=== PATIENT | female | born 1985 | race Caucasian/White ===

== ENCOUNTER 2020-04-13 23:50 | Emergency (ER) | payer MEDICAID ==
[~2020-04-13 23:50] MED LIST: Ondansetron 4 MG Tab.DIS ONE
[2020-04-14] MEDS ORDERED: Ondansetron 4 MG/2 ML SDV IVPUSH ONE (00:17)
[2020-04-14] MEDS ORDERED: Dicyclomine 20 MG/2 ML SDV IM ONE (00:17)
[2020-04-14] MEDS ORDERED: Sodium Chloride 0.9% 1,000 ML IV ONE (00:18)
[2020-04-14] MEDS ORDERED: Ondansetron 4 MG/2 ML SDV ONE (00:45)
[2020-04-14] MEDS ORDERED: Sodium Chloride 0.9% 50 ML SDV FLUSH ONE (00:53)
[2020-04-14] MEDS ORDERED: Iodixanol 652 MG/ML 100 ML Bottle IV SCH (01:00)
[2020-04-14] MEDS ORDERED: Potassium Chloride 40 MEQ/20 ML SDV IV STA (01:21)
[2020-04-14] MEDS ORDERED: NS + KCl 20mEq/L 1,000 ML IV ONE (01:45)
[2020-04-14] MEDS ORDERED: metroNIDAZOLE 500 MG Tab PO ONE (01:54)
[2020-04-14] MEDS ORDERED: Potassium Chloride 20 MEQ Tab.ER PO ONE (01:54)
--- NOTE | 2020-04-14 02:08 | EDM.PDOC ---
ED HPI GENERAL MEDICAL PROBLEM - General Chief Complaint: Abdominal Pain Stated Complaint: DIARRHEA Time Seen by Provider: 04/13/20 23:50 Source of Information: Reports: Patient History Limitations: Reports: No Limitations - History of Present Illness INITIAL COMMENTS - FREE TEXT/NARRATIVE: Patient is a 34 y/o female, who presents with watery diarrhea and abdominal cramping off and on for several months. Associated nausea. Patient denies and has had a hysterectomy. Patient has an appointment tomorrow with Dr. Bravo. She denies any recent antibiotics, no camping, no vomiting, no chest pain, no SOB, no dizziness, and no melena/bloody stools. - Related Data Allergies Allergy/AdvReac Type Severity Reaction Status Date / Time prochlorperazine Allergy Unknown Cannot Verified 04/14/20 01:02 [From Compazine] Remember sumatriptan [From Imitrex] Allergy Unknown Cannot Verified 04/14/20 01:02 Remember Social & Family History - Tobacco Use Smoking Status *Q: Never Smoker ED ROS GENERAL - Review of Systems Review Of Systems: Comprehensive ROS is negative, except as noted in HPI. ED EXAM, GI/ABD - Physical Exam Exam: See Below Exam Limited By: No Limitations General Appearance: Alert, No Apparent Distress Respiratory/Chest: No Respiratory Distress, Lungs Clear, Normal Breath Sounds, No Accessory Muscle Use, Chest Non-Tender Cardiovascular: Normal Peripheral Pulses, Regular Rate, Rhythm, No Edema, No Murmur GI/Abdominal Exam: Normal Bowel Sounds, Soft, No Distention (Diffuse tenderness to abdomen) Course - Orders/Labs/Meds Orders: Active Orders 24 hr Category Date Time Status Abdomen Pelvis w Cont [CT] Stat Exams 04/14/20 01:19 Taken Iodixanol [Visipaque 320] Med 04/14/20 01:00 Active 100 ml IV . DIRECTED NS + KCl 20mEq/L [Normal Saline with 20 mEq KCl] 1,000 Med 04/14/20 01:45 Active ml IV ONETIME Medication Orders Potassium Chloride/Sodium Chloride (Normal Saline With 20 Meq Kcl) 1,000 mls @ 500 mls/hr IV ONETIME ONE Stop: 04/14/20 03:44 Iodixanol (Visipaque 320) 100 ml IV . DIRECTED [facility] Labs: Laboratory Tests 04/14/20 04/14/20 04/14/20 Range/Units 00:40 00:40 00:40 WBC 5.2 (4.0-11.0) K/uL RBC 4.22 (3.80-5.80) M/uL Hgb 12.9 (11.5-16.5) g/dL Hct 37.1 (37.0-47.0) % MCV 88 (76-96) fL MCH 30.6 (27.0-32.0) pg MCHC 34.8 (31.0-35.0) g/dL RDW 12.1 (11.0-16.0) % Plt Count 280 (150-500) K/uL MPV 10.6 H (6.0-10.0) fL Neut % (Auto) 30.5 L (45.0-70.0) % Lymph % (Auto) 45.6 H (20.0-40.0) % [place] % (Auto) 16.2 H (3.0-10.0) % Eos % (Auto) 7.1 H (1.0-5.0) % Baso % (Auto) 0.6 H (0.0-0.5) % Neut # (Auto) 1.59 L (2.00-7.50) K/uL Lymph # (Auto) 2.37 (1.50-4.00) K/uL Flagler # (Auto) 0.84 H (0.20-0.80) K/uL Eos # (Auto) 0.37 (0.04-0.40) K/uL Baso # (Auto) 0.03 (0.02-0.10) K/uL Sodium (136-145) mmol/L Potassium (3.5-5.1) mmol/L Chloride (98-107) mmol/L Carbon Dioxide (21.0-32.0) mmol/L Anion Gap (5.0-15.0) mmol/L BUN (8-26) mg/dL Creatinine (0.55-1.02) mg/dL Est Cr Clr Drug Dosing Estimated GFR (MDRD) (>60) MLS/MIN BUN/Creatinine Ratio (6-25) Glucose (74-100) mg/dL Lactic Acid (0.4-2.0) mmol/L Calcium (8.5-10.1) mg/dL Total Bilirubin (0.0-1.0) mg/dL AST (15-37) U/L ALT (12-78) U/L Alkaline Phosphatase (46-116) U/L Total Protein (6.4-8.2) g/dL Albumin (3.4-5.0) g/dL Globulin (2.2-4.2) g/dL Albumin/Globulin Ratio (0.8-2.0) Urine Color Yellow Urine Appearance Clear (CLEAR) Urine pH 6.0 (5.0-8.0) Ur Specific [place] 1.010 (1.003-1.030) Urine Protein Negative (NEGATIVE) mg/dL Urine Glucose (UA) Negative (NEGATIVE) mg/dL Urine Ketones Negative (NEGATIVE) mg/dL Urine Occult Blood Negative (NEGATIVE) Urine Nitrite Negative (NEGATIVE) Urine Bilirubin Negative (NEGATIVE) Urine Urobilinogen 0.2 (0.2-1.0) E.U./dL Ur Leukocyte Esterase Negative (NEGATIVE) Urine HCG, Qual Negative (NEGATIVE) 04/14/20 04/14/20 Range/Units 00:40 00:40 WBC (4.0-11.0) K/uL RBC (3.80-5.80) M/uL Hgb (11.5-16.5) g/dL Hct (37.0-47.0) % MCV (76-96) fL MCH (27.0-32.0) pg MCHC (31.0-35.0) g/dL RDW (11.0-16.0) % Plt Count (150-500) K/uL MPV (6.0-10.0) fL Neut % (Auto) (45.0-70.0) % Lymph % (Auto) (20.0-40.0) % Flag[place] % (Auto) (3.0-10.0) % Eos % (Auto) (1.0-5.0) % Baso % (Auto) (0.0-0.5) % Neut # (Auto) (2.00-7.50) K/uL Lymph # (Auto) (1.50-4.00) K/uL Flagler # (Auto) (0.20-0.80) K/uL Eos # (Auto) (0.04-0.40) K/uL Baso # (Auto) (0.02-0.10) K/uL Sodium 141 (136-145) mmol/L Potassium 2.9 L* (3.5-5.1) mmol/L Chloride 104 (98-107) mmol/L Carbon Dioxide 25.9 (21.0-32.0) mmol/L Anion Gap 14.0 (5.0-15.0) mmol/L BUN 7 L (8-26) mg/dL Creatinine 0.76 (0.55-1.02) mg/dL Est Cr Clr Drug Dosing TNP Estimated GFR (MDRD) > 60 (>60) MLS/MIN BUN/Creatinine Ratio 9.2 (6-25) Glucose 90 (74-100) mg/dL Lactic Acid 0.7 (0.4-2.0) mmol/L Calcium 8.6 (8.5-10.1) mg/dL Total Bilirubin 0.2 (0.0-1.0) mg/dL AST 16 (15-37) U/L ALT 20 (12-78) U/L Alkaline Phosphatase 73 (46-116) U/L Total Protein 7.0 (6.4-8.2) g/dL Albumin 3.8 (3.4-5.0) g/dL Globulin 3.2 (2.2-4.2) g/dL Albumin/Globulin Ratio 1.2 (0.8-2.0) Urine Color Urine Appearance (CLEAR) Urine pH (5.0-8.0) Ur Specific [place] (1.003-1.030) Urine Protein (NEGATIVE) mg/dL Urine Glucose (UA) (NEGATIVE) mg/dL Urine Ketones (NEGATIVE) mg/dL Urine Occult Blood (NEGATIVE) Urine Nitrite (NEGATIVE) Urine Bilirubin (NEGATIVE) Urine Urobilinogen (0.2-1.0) E.U./dL Ur Leukocyte Esterase (NEGATIVE) Urine HCG, Qual (NEGATIVE) Meds: Medications Generic Name Dose Route Start Last Admin Trade Name Freq PRN Reason Stop Dose Admin Potassium Chloride/Sodium Chloride 1,000 mls @ 500 mls/hr 04/14/20 01:45 Normal Saline With 20 Meq Kcl IV 04/14/20 03:44 ONETIME ONE Iodixanol 100 ml 04/14/20 01:00 Visipaque 320 IV . DIRECTED [facility]AVI Discontinued Medications Generic Name Dose Route Start Last Admin Trade Name Gurmeet PRN Reason Stop Dose Admin Dicyclomine HCl 20 mg 04/14/20 00:17 Bentyl IM 04/14/20 00:18 ONETIME ONE Sodium Chloride 1,000 mls @ 1,000 mls/sec 04/14/20 00:18 04/14/20 01:10 Normal Saline IV 04/14/20 00:19 Infused .BOLUS ONE Infusion Metronidazole 500 mg 04/14/20 01:54 Flagyl PO 04/14/20 01:55 ONETIME ONE Ondansetron HCl 4 mg 04/14/20 00:17 04/14/20 00:46 Zofran IVPUSH 04/14/20 00:18 4 mg ONETIME ONE Administration Ondansetron HCl Confirm 04/14/20 00:45 04/14/20 00:45 Zofran Administered 04/14/20 00:46 Not Given Dose 4 mg .ROUTE .STK-MED ONE Potassium Chloride 40 meq 04/14/20 01:54 Klor-Con M20 PO 04/14/20 01:55 ONETIME ONE Sodium Chloride 50 ml 04/14/20 00:53 Normal Saline FLUSH 04/14/20 00:54 ONETIME ONE Departure - Departure Time of Disposition: 02:10 Disposition: Home, Self-Care 01 Condition: Good Clinical Impression: Colitis - Discharge Information *PRESCRIPTION DRUG MONITORING PROGRAM REVIEWED*: Not Applicable *COPY OF PRESCRIPTION DRUG MONITORING REPORT IN PATIENT MILO: Not Applicable Referrals: PCP,None [Primary Care Provider] - - My Orders Last 24 Hours: My Active Orders 04/14/20 01:00 Iodixanol [Visipaque 320] 100 ml IV . DIRECTED 04/14/20 01:19 Abdomen Pelvis w Cont [CT] Stat 04/14/20 01:45 NS + KCl 20mEq/L [Normal Saline with 20 mEq KCl] 1,000 ml IV ONETIME - Assessment/Plan Last 24 Hours: My Active Orders 04/14/20 01:00 Iodixanol [Visipaque 320] 100 ml IV . DIRECTED 04/14/20 01:19 Abdomen Pelvis w Cont [CT] Stat 04/14/20 01:45 NS + KCl 20mEq/L [Normal Saline with 20 mEq KCl] 1,000 ml IV ONETIME Plan: Patient with hypokalemia and potassium was replaced. She was given zofran, fluid and bentyl with improvement of her symptoms. Imaging with mild colitis. Will discharge patient home with flagyl and zofran. Follow up with Dr. Bravo tomorrow as scheduled at 0900. Return to the ED for fever >102, unable to tolerate fluids, difficulty breathing/swallowing, and/or persistent/worsening symptoms.
[2020-04-14] MEDS ORDERED: metroNIDAZOLE 500 MG Tab ONE (02:24)
--- NOTE | 2020-04-14 07:36 | CT ---
DATE OF SERVICE: 04/14/20 CLINICAL DATA: r/o colitis ENHANCED ABDOMEN AND PELVIC CT: Multislice acquisition through the abdomen and pelvis with IV, but without oral contrast was performed. No priors. The lung bases are clear. The heart size is normal. There is mild diffuse fatty infiltration of the liver. No focal hepatic lesions. The gallbladder is contracted. No calcified gallstones. No biliary duct dilatation. The spleen appears normal. The pancreas appears normal. The right and left adrenals appear normal. The right and left kidneys appear normal and enhance symmetrically. No hydronephrosis or hydroureter. The bladder is partially fluid-filled. It appears normal. No evidence of appendicitis. There is a moderate amount of stool noted within the ascending and transverse colon. There is mural thickening within the descending and sigmoid colon. There are scattered air-fluid levels within the colon. Colitis should be considered. There is a small hiatal hernia. There is gastric wall thickening in the fundus of the stomach. This is probably related to nondistension. Gastritis should be considered. The patient is status post hysterectomy. No free air. No free fluid. No adenopathy. No aortic aneurysm or dissection. [id number] [facility]
== END 2020-04-14 02:15 | disposition home or self-care (01) ==
LOC: LB.ED 23:50
DX: K52.9 Noninfective gastroenteritis and colitis, unspecified (principal); E87.6 Hypokalemia; Z88.8 Allergy status to other drugs, medicaments and biological substances
CPT/HCPCS: 36415; 74177; 80053; 81003; 81025; 83605; 85025; 96361; 96365; 96372; 96375; 99284-25; A9270-GY; J0500; J2405; J3480; J7030

== ENCOUNTER 2020-05-30 16:19 | Emergency (ER) | payer MEDICAID ==
[~2020-05-30 16:19] MED LIST changes: -Ondansetron 4 MG Tab.DIS ONE; +traMADol 50 MG Tab ONE
[2020-05-30] MEDS: Ketorolac 60 MG/2 ML SDV IM ONE ×2 (17:34→18:17)
[2020-05-30] MEDS ORDERED: Ketorolac 60 MG/2 ML SDV IM ONE (18:15)
--- NOTE | 2020-05-30 19:13 | ER ---
REASON FOR EMERGENCY ROOM VISIT: Left ankle injury. HISTORY: This previously healthy 34-year-old woman jumped off the tailgate of a pickup and sustained a forced inversion injury of her left ankle. She immediately experienced swelling and discomfort and some bluish discoloration over the lateral aspect of her ankle area. She thought she felt a popping sensation when she landed on the side of her foot, which resulted in a forced inversion type of injury. She was unable to bear weight on this because of the pain and swelling. She denies any numbness or tingling in her toes. PAST MEDICAL HISTORY: Colitis. MEDICATIONS: Include the following, fexofenadine, benzonatate, fluticasone, montelukast sodium, gabapentin, and sertraline; doses as noted in her electronic medical record. ALLERGIES: PROCHLORPERAZINE AND SUMATRIPTAN. REVIEW OF SYSTEMS: Pertinent positives and negatives as listed in the HPI. PHYSICAL EXAMINATION: MUSCULOSKELETAL: Examination of the left leg reveals that she has swelling inferior to her lateral malleolus on the left side with some purplish discoloration consistent with a soft- tissue hematoma. She has tenderness to direct palpation here and some moderate discomfort to passive range of motion. There is no evidence of ankle-joint instability and no bony crepitus. There is no tenderness over the fibula or the fibular head. Distally, she has normal sensation as she is able to move her toes. IMAGING: X-rays show soft tissue swelling, but no evidence of fracture or dislocation. IMPRESSION: Left ankle sprain. PLAN: I instructed her to apply ice quite aggressively to this area to minimize swelling and for comfort measures. She should keep it iced fairly aggressively for the next 24 hours or so. We will keep her on nonweightbearing and we fit her up for a walking boot and crutches. She should stay off it for the next couple of days and then using the walking boot gradually begin to bear weight as tolerated after a few days' time. If she is not experiencing any progress or if any concerns develop, next week she should be seen in followup. She understands. All questions were answered. JINNY/SYED /[id number]
--- NOTE | 2020-05-31 08:56 | CR ---
Date of Service: 05/30/20 Clinical Data: possible fracture LEFT FOOT: No acute fracture or dislocation. No lytic or blastic bone lesions. There is a small posterior calcaneal spur. [id number] [facility]
== END 2020-05-30 18:00 | disposition home or self-care (01) ==
LOC: LB.ED 16:19
DX: S93.402A Sprain of unspecified ligament of left ankle, initial encounter (principal); Z88.8 Allergy status to other drugs, medicaments and biological substances; X58.XXXA Exposure to other specified factors, initial encounter
CPT/HCPCS: 73630; 96372; 99283; A9270; J1885; 99282

== ENCOUNTER 2021-09-27 10:36 | Emergency (ER) | payer MEDICAID ==
[2021-09-27] MEDS ORDERED: Ondansetron 4 MG Tab.DIS ONE (10:57)
[2021-09-27] MEDS ORDERED: Ondansetron 4 MG Tab.DIS PO ONE (11:14)
[2021-09-27] MEDS ORDERED: Ketorolac 30 MG/ML SDV ONE (12:59)
[2021-09-27] MEDS ORDERED: Ondansetron 4 MG/2 ML SDV ONE (12:59)
[2021-09-27] MEDS: Ketorolac 30 MG/ML SDV IVPUSH ONE ×2 (13:07→13:47)
[2021-09-27] MEDS: Ondansetron 4 MG/2 ML SDV IVPUSH ONE ×2 (13:09→13:47)
[2021-09-27] MEDS: Sodium Chloride 0.9% 1,000 ML IV ONE ×2 (13:10→13:46)
[2021-09-27] MEDS ORDERED: Potassium Chloride 20 MEQ Tab.ER ONE (13:24)
[2021-09-27] MEDS: Potassium Chloride 20 MEQ Tab.ER PO ONE ×2 (13:32→13:46)
--- NOTE | 2021-09-27 14:10 | EDM.PDOC ---
ED HPI GENERAL MEDICAL PROBLEM - General Chief Complaint: Gastrointestinal Problem Stated Complaint: NAUSEA Time Seen by Provider: 09/27/21 11:00 - History of Present Illness INITIAL COMMENTS - FREE TEXT/NARRATIVE: Pt is here with C/O not feeling well, with nausea, vomiting, and some diarrhea. This started 3-4 days ago. She feels weak. No coughing, SOB, or wheezing. Head Pain Score (Numeric/FACES): 5 - Related Data Allergies Allergy/AdvReac Type Severity Reaction Status Date / Time prochlorperazine Allergy Unknown Cannot Verified 09/27/21 10:48 [From Compazine] Remember sumatriptan [From Imitrex] Allergy Unknown Cannot Verified 09/27/21 10:48 Remember Home Meds: Home Meds Benzonatate 100 mg PO DAILY 05/30/20 [History] Fluticasone Propionate [Flonase] 50 mcg NASBOTH DAILY PRN 05/30/20 [History] Sertraline HCl 100 mg PO DAILY 05/30/20 [History] Meloxicam [Mobic] 15 mg PO DAILY 09/27/21 [History] buPROPion [Wellbutrin] 300 mg PO DAILY 09/27/21 [History] Past Medical History HEENT History: Reports: Sinusitis, Other (See Below) Other HEENT History: contact lenses Respiratory History: Reports: Other (See Below) Other Respiratory History: Reactive Airway disease CLAIMS INVESTIGATOR History: Reports: Ectopic , , Other (See Below) Neurological History: Reports: Migraines Psychiatric History: Reports: Anxiety - Infectious Disease History Infectious Disease History: Reports: Chicken Pox - Past Surgical History GI Surgical History: Reports: Cholecystectomy Female Surgical History: Reports: Hysterectomy, Oophorectomy Musculoskeletal Surgical History: Reports: Other (See Below) Other Musculoskeletal Surgeries/Procedures:: 3 knee surgeries in right and 2 in left, has had meniscus tears, Social & Family History - Family History Family Medical History: No Pertinent Family History - Tobacco Use Tobacco Use Status *Q: Current Every Day Tobacco User Years of Tobacco use: 20 Packs/Tins Daily: 1 - Caffeine Use Caffeine Use: Reports: Energy Drinks, Soda, Tea - Recreational Drug Use Recreational Drug Use: Yes Drug Use in Last 12 Months: Yes Recreational Drug Type: Reports: Marijuana/Hashish ED ROS GENERAL - Review of Systems Review Of Systems: Comprehensive ROS is negative, except as noted in HPI. Constitutional: Reports: Weakness GI/Abdominal: Reports: Diarrhea, Nausea, Vomiting ED EXAM, GI/ABD - Physical Exam Exam: See Below Course - Vital Signs Last Recorded V/S: Last Vital Signs Temp 96.7 F L 09/27/21 10:55 Pulse 98 09/27/21 10:55 Resp 16 09/27/21 10:55 BP 136/99 H 09/27/21 10:55 Pulse Ox 96 09/27/21 10:55 - Orders/Labs/Meds Orders: Active Orders 24 hr Category Date Time Status BASIC METABOLIC PANEL,BMP [CHEM] Stat Lab 09/27/21 12:18 Ordered UA W/MICROSCOPIC [URIN] Stat Lab 09/27/21 12:25 Ordered Labs: Laboratory Tests 09/27/21 09/27/21 09/27/21 Range/Units 11:50 12:18 12:25 WBC 8.1 D (4.0-11.0) K/uL RBC 5.12 (3.80-5.80) M/uL Hgb 15.2 (11.5-16.5) g/dL Hct 44.1 (37.0-47.0) % MCV 86 (76-96) fL MCH 29.7 (27.0-32.0) pg MCHC 34.5 (31.0-35.0) g/dL RDW 12.4 (11.0-16.0) % Plt Count 276 (150-500) K/uL MPV 10.3 H (6.0-10.0) fL Neut % (Auto) 66.2 (45.0-70.0) % Lymph % (Auto) 23.9 (20.0-40.0) % [place] % (Auto) 9.3 (3.0-10.0) % Eos % (Auto) 0.5 L (1.0-5.0) % Baso % (Auto) 0.1 (0.0-0.5) % Neut # (Auto) 5.35 (2.00-7.50) K/uL Lymph # (Auto) 1.93 (1.50-4.00) K/uL [place] # (Auto) 0.75 (0.20-0.80) K/uL Eos # (Auto) 0.04 (0.04-0.40) K/uL Baso # (Auto) 0.01 L (0.02-0.10) K/uL Sodium 144 (136-145) mmol/L Potassium 2.9 L* (3.5-5.1) mmol/L Chloride 103 (98-107) mmol/L Carbon Dioxide 27.3 (21.0-32.0) mmol/L Anion Gap 16.6 H (5.0-15.0) mmol/L BUN 15 D (8-26) mg/dL Creatinine 0.80 (0.55-1.02) mg/dL Est Cr Clr Drug Dosing 79.65 mL/min Estimated GFR (MDRD) > 60 (>60) MLS/MIN BUN/Creatinine Ratio 18.8 (6-25) Glucose 88 (74-100) mg/dL Calcium 9.0 (8.5-10.1) mg/dL Total Bilirubin 0.8 D (0.0-1.0) mg/dL AST 17 (15-37) U/L ALT 31 (12-78) U/L Alkaline Phosphatase 79 (46-116) U/L Total Protein 7.7 (6.4-8.2) g/dL Albumin 4.3 (3.4-5.0) g/dL Globulin 3.4 (2.2-4.2) g/dL Albumin/Globulin Ratio 1.3 (0.8-2.0) Lipase 110 (73-393) U/L SARS-CoV-2 RNA (ELVER) Negative (NEGATIVE) Meds: Medications Discontinued Medications Generic Name Dose Route Start Last Admin Trade Name Gurmeet PRN Reason Stop Dose Admin Sodium Chloride 1,000 mls @ 999 mls/hr 09/27/21 12:26 09/27/21 13:46 Normal Saline IV 09/27/21 13:26 Not Given .BOLUS ONE Ketorolac Tromethamine 30 mg 09/27/21 12:26 09/27/21 13:47 Ketorolac 30 Mg/Ml Sdv IVPUSH 09/27/21 12:27 Not Given ONETIME ONE Ketorolac Tromethamine Confirm 09/27/21 12:59 09/27/21 13:07 Ketorolac 30 Mg/Ml Sdv Administered 09/27/21 13:00 Not Given Dose 30 mg .ROUTE .STK-MED ONE Ondansetron HCl Confirm 09/27/21 10:57 09/27/21 11:15 Ondansetron 4 Mg Tab.Dis Administered 09/27/21 10:58 Not Given Dose 4 mg .ROUTE .STK-MED ONE Ondansetron HCl 4 mg 09/27/21 11:14 09/27/21 11:15 Ondansetron 4 Mg Tab.Dis PO 09/27/21 11:15 4 mg ONETIME ONE Administration Ondansetron HCl 4 mg 09/27/21 12:26 09/27/21 13:47 Ondansetron 4 Mg/2 Ml Sdv IVPUSH 09/27/21 12:27 Not Given ONETIME ONE Ondansetron HCl Confirm 09/27/21 12:59 09/27/21 13:07 Ondansetron 4 Mg/2 Ml Sdv Administered 09/27/21 13:00 Not Given Dose 4 mg .ROUTE .STK-MED ONE Potassium Chloride Confirm 09/27/21 13:24 09/27/21 13:31 Potassium Chloride 20 Meq Tab.Er Administered 09/27/21 13:25 Not Given Dose 20 meq .ROUTE .STK-MED ONE Potassium Chloride 20 meq 09/27/21 13:31 09/27/21 13:46 Potassium Chloride 20 Meq Tab.Er PO 09/27/21 13:32 Not Given ONETIME ONE - Re-Assessments/Exams Free Text/Narrative Re-Assessment/Exam: 09/27/21 14:07 Labs show her K+ is 2.9. She was given 1 liter of N.S., K-dur 20 meq po, and Zofran x 2. She is feeling a little better. She will be discharged home with K-dur 20 Meq x 2 days, then 10 Meq x 5 days. Increase fluids with small freq drinks. Zofran to be used prn. Re check BMP in 7 days, sooner prn. Departure - Departure Time of Disposition: 13:45 Disposition: Home, Self-Care 01 Condition: Good Clinical Impression: Gastroenteritis, Hypokalemia - Discharge Information *PRESCRIPTION DRUG MONITORING PROGRAM REVIEWED*: Yes *COPY OF PRESCRIPTION DRUG MONITORING REPORT IN PATIENT MILO: Yes Instructions: Potassium Chloride Extended-Release Capsules, Ondansetron tablets, Hypokalemia, Nausea and Vomiting, Adult, [id number] Referrals: PCP,None [Primary Care Provider] - Forms: ED Department Discharge Additional Instructions: Stay hydrated with electrolyte drinks such as Gatorade or Pedialyte. Take medications Potassium and Zofran as directed. Return to the lab in 7 days to assess potassium level. Return to the clinic or ER if symptoms worsen. Follow up with primary care physician. Sepsis Event Note (ED) - Evaluation Sepsis Screening Result: No Definite Risk - Focused Exam Vital Signs: Vital Signs Temp Pulse Resp BP Pulse Ox 09/27/21 10:55 96.7 F L 98 16 136/99 H 96 - My Orders Last 24 Hours: My Active Orders 09/27/21 12:18 BASIC METABOLIC PANEL,BMP [CHEM] Stat 09/27/21 12:25 UA W/MICROSCOPIC [URIN] Stat - Assessment/Plan Last 24 Hours: My Active Orders 09/27/21 12:18 BASIC METABOLIC PANEL,BMP [CHEM] Stat 09/27/21 12:25 UA W/MICROSCOPIC [URIN] Stat
== END 2021-09-27 14:08 | disposition home or self-care (01) ==
LOC: LB.ED 10:36
DX: K52.9 Noninfective gastroenteritis and colitis, unspecified (principal); E87.6 Hypokalemia; J45.909 Unspecified asthma, uncomplicated; Z72.0 Tobacco use; Z88.8 Allergy status to other drugs, medicaments and biological substances; Z79.899 Other long term (current) drug therapy; Z20.822 Contact with and (suspected) exposure to COVID-19
CPT/HCPCS: 36415; 80053; 83690; 85025; 87430; 96374; 96375; 99284-25; A9270-GY; J1885; J2405; J7030; U0002

== ENCOUNTER 2022-01-27 13:52 | Emergency (ER) | payer MEDICAID ==
[2022-01-27] MEDS ORDERED: Acetaminophen 325 MG Tab PO PRN (15:55)
[2022-01-27] MEDS ORDERED: Acetaminophen 325 MG Tab ONE (16:08)
== END 2022-01-27 17:05 | disposition home or self-care (01) ==
LOC: LB.ED 13:52
DX: S22.41XA Multiple fractures of ribs, right side, initial encounter for closed fracture (principal); Z88.8 Allergy status to other drugs, medicaments and biological substances; Z20.822 Contact with and (suspected) exposure to COVID-19
CPT/HCPCS: 36415; 71045; 80053; 85025; 99285-25; A9270-GY; U0002